=== PATIENT | female | born 1970 | race American Indian/Alaskan Native ===

== ENCOUNTER 2017-08-12 15:01 | Outpatient (CLI) | payer OTHER ==
--- NOTE | 2017-08-12 15:48 | XRay Report ---
Bilateral knee: History: Pain in knee. Findings: There is minimal narrowing noted of the medial compartment of the right and left knee joint. Sclerotic articular surfaces with osteophyte suggestive of degenerative changes. Degenerative changes also noted at the patellofemoral compartment right and left knee joint. No joint effusion. Unfused tibial tuberosity epiphysis. Impression: Degenerative changes medial and patellofemoral compartment right and left knee joint.
--- NOTE | 2017-08-12 15:49 | XRay Report ---
Lumbar spine 3 views: History: Lumbago with sciatica left side. Findings: Normal height of vertebral bodies and intervertebral disc. Normal articular surfaces. Small anterior osteophytes suggesting early degenerative changes. No fracture. No soft tissue calcification. Impression: Early degenerative changes lumbar spine.
== END 2017-08-12 15:02 | disposition home or self-care (01) ==
LOC: XRAY 15:01
PROVIDERS: ATTEND Internal Medicine
DX: Z02.71 Encounter for disability determination (principal); M47.896 Other spondylosis, lumbar region; M17.0 Bilateral primary osteoarthritis of knee; M93.862 Other specified osteochondropathies, left lower leg; M93.861 Other specified osteochondropathies, right lower leg
CPT/HCPCS: 72100